=== PATIENT | female | born 2000 | race Caucasian/White ===

== ENCOUNTER → 2021-06-20 16:10 | Observation (INO) ==
[2021-06-20 14:00] LABS: Bacteria,Urine Few per hpf (None-Few); Bilirubin,Urine Negative (Negative); Blood,Urine Negative (Negative); Clarity,Urine Clear (Clear); Color,Urine Yellow (Yellow); Glucose,Urine (UA) Normal (Normal); Ketones,Urine Negative (Negative); Leukocyte Esterase,Urine Small (Negative); Mucus,Urine Few per lpf (None-Few); Nitrite,Urine Negative (Negative); PH,Urine 6.5 pH Units (5.0-8.0); Protein,Urine Trace mg/dL (Neg-Trace); RBC,Urine 0-3 per hpf (0-3); Specific Gravity,Urine 1.025 (1.010-1.025); Squamous Epithelial Cell,Urine Few per hpf (None-Few); WBC,Urine 0-3 per hpf (0-3)
[2021-06-20 14:36] LABS: Protein/Creatinine Ratio,Urine 0.11 mg/mg (0.00-0.20)
[2021-06-20 14:43] LABS: Basophils % 0.3 %; Eosinophils # 0.5 K/mcL (0.0-0.6); Eosinophils % 4.3 %; Hematocrit 38.8 % (35.3-44.9); Hemoglobin 12.7 g/dL (11.5-15.4); Immature Granulocytes % 0.7 % (0-4); Lymphocytes # 1.8 K/mcL (0.6-4.6); Lymphocytes % 16.8 %; Mean Corpuscular HGB Conc 32.7 g/dL (31.6-35.5); Mean Corpuscular Hemoglobin 28.6 pg (28.0-33.3); Mean Corpuscular Volume 87.4 fL (83.0-100.0); Mean Platelet Volume 10.8 fL (9.4-12.4); Monocytes # 0.7 K/mcL (0.0-1.3); Monocytes % 6.1 %; Neutrophils # 7.9 K/mcL (1.6-8.9); Platelet Count 237 K/mcL (140-400); Red Blood Count 4.44 M/mcL (3.82-4.97); Red Cell Distribution Width 13.8 % (11.5-14.5); Segmented Neutrophils % 71.8 %; White Blood Count 10.9 K/mcL (4.3-11.1)
[2021-06-20 15:16] LABS: Gardnerella DNA Not Detected (Not Detect); Trichomonas DNA Not Detected (Not Detect)
[2021-06-20 15:17] LABS: Candida DNA Not Detected (Not Detect)
[2021-06-20 15:23] LABS: Alanine Aminotransferase 5 Units/L (7-52); Aspartate Amino Transferase 8 Units/L (13-39); BUN/Creatinine Ratio 11 (6-26); Blood Urea Nitrogen 6 mg/dL (6-20); Lactate Dehydrogenase 175 Units/L (140-271); Uric Acid 4.9 mg/dL (2.3-7.6); eGFR For African Americans > 60 (> 60); eGFR For Non-African Americans > 60 (> 60)
[~2021-06-20 16:10] MED LIST: Acetaminophen 325 MG TABLET PO ONE
== END | disposition home or self-care (01) ==
LOC: 1NENULAB
PROVIDERS: ADMIT Obstetrics & Gynecology; ATTEND Obstetrics & Gynecology

== ENCOUNTER → 2021-07-19 21:58 | Observation (INO) ==
[2021-07-19 21:31] VITALS: PULSE 90; TEMP 98.8
== END | disposition home or self-care (01) ==
LOC: 1NENULAB
PROVIDERS: ADMIT Student in an Organized Health Care Education/Training Program; ATTEND Student in an Organized Health Care Education/Training Program

== ENCOUNTER 2021-07-29 08:51 | Inpatient (IN) ==
[2021-07-29] MEDS ORDERED: Ondansetron 4 MG/2 ML VIAL IVP PRN ×2 (08:55→10:31)
[2021-07-29] MEDS ORDERED: Metoclopramide 10 MG/2 ML VIAL IVP PRN (08:55)
[2021-07-29] MEDS ORDERED: Naloxone 0.4 MG/ML INJ IVP PRN ×2 (08:55→10:31)
[2021-07-29] MEDS ORDERED: Azithromycin 500 MG in 0.9 % Sodium Chloride 250 ML IVPB PRN (08:55)
[2021-07-29] MEDS ORDERED: *HR* Nalbuphine 10 MG/ML AMPUL IV PRN (08:55)
[2021-07-29] MEDS ORDERED: Famotidine 20 MG/2 ML VIAL IVP PRN (08:55)
[2021-07-29] MEDS ORDERED: Lidocaine 1% 20 ML MDV ID PRN (08:55)
[2021-07-29] MEDS ORDERED: Oxytocin 20 units/ LR 1000 mL 20 UNIT/1,000 ML BAG IVC SCH (09:45)
[2021-07-29 10:17] LABS: Basophils % 0.3 %; Eosinophils # 0.3 K/mcL (0.0-0.6); Eosinophils % 2.6 %; Hematocrit 40.5 % (35.3-44.9); Hemoglobin 13.6 g/dL (11.5-15.4); Immature Granulocytes % 0.5 % (0-4); Lymphocytes # 1.8 K/mcL (0.6-4.6); Lymphocytes % 17.2 %; Mean Corpuscular HGB Conc 33.6 g/dL (31.6-35.5); Mean Corpuscular Hemoglobin 28.8 pg (28.0-33.3); Mean Corpuscular Volume 85.6 fL (83.0-100.0); Mean Platelet Volume 11.9 fL (9.4-12.4); Monocytes # 0.6 K/mcL (0.0-1.3); Monocytes % 6.2 %; Neutrophils # 7.6 K/mcL (1.6-8.9); Platelet Count 244 K/mcL (140-400); Red Blood Count 4.73 M/mcL (3.82-4.97); Segmented Neutrophils % 73.2 %; White Blood Count 10.4 K/mcL (4.3-11.1)
[2021-07-29] MEDS ORDERED: Ringers Solution, Lactated 1,000 ML ONE ×3 (10:20→20:54)
[2021-07-29] MEDS ORDERED: *HR* FentaNYL (PF) 100 MCG/2 ML VIAL EP ONE (10:30)
[2021-07-29] MEDS ORDERED: EPHEDrine 50 MG/ML VIAL IVP PRN ×2 (10:30→10:31)
[2021-07-29] MEDS ORDERED: Epidural Premix (fent/bupiv) 110 ML EP SCH (10:30)
[2021-07-29 10:54] LABS: Influenza A PCR Negative (Negative); Influenza B PCR Negative (Negative); Resp. Syncytial Virus PCR Negative (Negative)
[2021-07-29 10:55] LABS: SARS-CoV-2 by PCR (In House) Negative (Negative)
[2021-07-29 13:45] LABS: Amphetamine Screen,Urine Negative ng/mL (Cutoff=1000); Barbiturate Screen,Urine Negative ng/mL (Cutoff=200); Benzodiazepines Screen,Urine Negative ng/mL (Cutoff=200); Cannabinoid Screen,Urine Negative ng/mL (Cutoff = 50); Cocaine Screen,Urine Negative ng/mL (Cutoff= 300); Opiate Screen,Urine Negative ng/mL (Cutoff=300); Phencyclidine Screen,Urine Negative ng/mL (Cutoff=25)
[2021-07-30] MEDS ORDERED: Ondansetron ODT 4 MG TAB.RAPDIS SL PRN (00:14)
[2021-07-30] MEDS ORDERED: Rho Immune Globulin 1,500 UNIT SYRINGE IM PRN (00:14)
[2021-07-30] MEDS ORDERED: Benzocaine/Menthol 56 GM AEROSOL SPRAY TP PRN (00:14)
[2021-07-30] MEDS ORDERED: Lanolin 7 G OINT...G. TP PRN (00:14)
[2021-07-30] MEDS ORDERED: Oxytocin 20 units/ LR 1000 mL 20 UNIT/1,000 ML BAG IVC ONE (00:14)
[2021-07-30] MEDS ORDERED: Oxytocin 20 units/ LR 1000 mL 20 UNIT/1,000 ML BAG IVC SCH (00:14)
[2021-07-30] MEDS ORDERED: Measles/Mumps/Rubella Vacc 0.5 ML VIAL SQ PRN (00:14)
[2021-07-30] MEDS: Ibuprofen 600 MG TABLET PO SCH ×3 (02:16→18:04)
[2021-07-30] MEDS: Acetaminophen 325 MG TABLET PO SCH ×2 (09:36→18:04)
[2021-07-30] MEDS: Prenatal Vit/FA 1 EACH TABLET PO SCH (09:36)
[2021-07-30 15:25] VITALS: O2SAT 99
[2021-07-31] MEDS: Acetaminophen 325 MG TABLET PO SCH ×2 (01:39→08:21)
[2021-07-31] MEDS: Ibuprofen 600 MG TABLET PO SCH ×2 (01:39→08:20)
[2021-07-31 07:47] VITALS: BP 101/54; PULSE 75; TEMP 97.6
[2021-07-31] MEDS: Prenatal Vit/FA 1 EACH TABLET PO SCH (08:20)
== END 2021-07-31 11:15 | disposition home or self-care (01) | DRG 806 ==
LOC: 1NENULAB → 1NENUOBS 07-30 01:00
PROVIDERS: ADMIT Obstetrics & Gynecology; ATTEND Obstetrics & Gynecology